=== PATIENT | male | born 1975 | race Two or more races ===

== ENCOUNTER 2024-05-27 18:14 | Emergency (ER) | payer MEDICARE, OTHER ==
[~2024-05-27] VITALS: Ht 193 cm; Wt 127.2 kg
[2024-05-27 18:51] LABS: Basophils # (auto) 0 10 ^3/uL (0-0.2); Basophils % (auto) 0.2 % (0.0-2.0); Eosinophils # (auto) 0.1 10 ^3/uL (0-0.8); Eosinophils % (auto) 1.5 % (0.0-7.0); Hematocrit 40.8 % (41.0-53.0); Hemoglobin 13.4 g/dL (13.5-17.5); Lymphocytes # (auto) 2.7 10 ^3/uL (0.4-5.4); Lymphocytes % (auto) 36.1 % (10.0-50.0); Mean Corpuscular Hemoglobin 28.9 pg (28.0-32.0); Mean Corpuscular Hgb Conc. 32.9 g/dL (32.0-36.0); Mean Corpuscular Volume 87.7 fL (80.0-100.0); Monocytes # (auto) 0.8 10 ^3/uL (0-1.3); Monocytes % (auto) 10.6 % (0.0-12.0); Neutrophils # (auto) 3.9 10 ^3/uL (1.6-8.6); Neutrophils % (auto) 51.6 % (37.0-80.0); Platelet Count (auto) 248 10^3/uL (140-450); Red Blood Cells 4.65 10^6/uL (4.5-5.90); Red Cell Distribution Width 14.6 % (11.8-14.3); White Blood Cell 7.5 10^3/uL (4.4-10.8)
[2024-05-27 18:52] VITALS: TEMP 98.2
[2024-05-27] MEDS: NITROGLYCERIN 0.4 MG SL TAB SL ONE (18:52)
[2024-05-27 19:07] LABS: Alanine Aminotransferase 17 U/L (7-40); Albumin 4.2 g/dL (3.2-4.8); Alkaline Phosphatase 115 U/L (46-116); Anion Gap 0 (5-15); Aspartate Aminotransferase 18 U/L (13-40); Bilirubin, Total 0.2 mg/dL (0.2-1.0); Blood Urea Nitrogen 10 mg/dL (9-23); Calcium 9.9 mg/dL (8.7-10.4); Carbon Dioxide 33 mmol/L (20-30); Chloride 108 mmol/L (98-107); Glucose 79 mg/dL (74-106); Magnesium 1.8 mg/dL (1.6-2.6); Potassium 3.9 mmol/L (3.5-5.1); Sodium 141 mmol/L (136-145); Total Protein 6.3 g/dL (5.7-8.2)
[2024-05-27 19:10] LABS: INR 0.99 (0.9-1.15); Prothrombin Time 10.5 sec (9.3-11.8)
[2024-05-27 19:16] VITALS: BP 137/82; PULSE 66; RESP 18; O2SAT 99
[2024-05-27 20:30] LABS: Urine Bacteria None Seen /hpf (None Seen)
[2024-05-27 20:47] LABS: Urine Blood Negative /uL (Negative); Urine Clarity Clear (Clear); Urine Color Light-Yellow (Yellow); Urine Mucus FEW (None Seen); Urine Protein, UAD Negative (Negative); Urine Specific Gravity 1.024 (1.001-1.035); Urine Urobilinogen Normal (Negative); Urine WBC 1 /hpf (0 - 3); Urine pH 6.5 (5.0-9.0)
== END 2024-05-27 22:12 | disposition left against medical advice (07) ==
LOC: EDBD 18:14 → ER 18:14
DX: R07.89 Other chest pain (principal)
CPT/HCPCS: 36415; 71045; 80053; 81001; 83735; 83880; 84484; 85025; 85610; 85730; 93005

== ENCOUNTER 2024-05-27 22:48 | Emergency (ER) | payer MEDICARE | END 2024-05-27 23:08 | disposition home or self-care (01) | LOC: ER 22:48 | DX: R45.851 Suicidal ideations (principal); Z53.21 Procedure and treatment not carried out due to patient leaving prior to being seen by health care provider ==

== ENCOUNTER 2024-10-08 11:58 | Inpatient (IN) | payer MEDICARE, MEDICAID ==
[~2024-10-08] VITALS: Ht 193 cm; Wt 107.9 kg
--- NOTE | 2024-10-08 13:44 | DVH ---
CHEST RADIOGRAPH Indication: sob Technique: Single frontal view of the chest was obtained Comparison: XY CHEST PORTABLE on DOS: 05/27/24 FINDINGS: Lines and Tubes: None Lungs: No focal consolidation. Pleura: No effusion. No pneumothorax. Cardiomediastinal contours: Unremarkable Bones: No acute osseous abnormality. IMPRESSION: No acute cardiopulmonary disease.
--- NOTE | 2024-10-08 13:46 | ED.PDOC ---
History of Present Illness HPI Comments 48 y/o M, Hx of HTN, and seizures is BIBA for c/o chest pain, palpitations, shortness of breath, nonproductive cough, and nausea, today. Per EMS report, patient endorses sudden onset of symptoms that was provoked, this afternoon, after walking to his local [employer] from his place of residence. Patient was commented to have been found in sinus tachycardia by EMS staff on scene and was given 324 ASA en route, with all other reported vitals being stable and within renee limits. Patient endorses on no additional relevant or pertinent Hx, with exception of running out of seizure medications after moving to the area, recently, and has been had 2x tonic clonic seizures since. He denies having any back pain, vomiting, fever, chills, or other associated symptoms or modifiers at this time. Chief Complaint: Chest Pain Time Seen by MD: 12:20 Primary Care Provider: NONE Reviewed Notes: Nurses Notes, International Controller Notes, Medications, Allergies Allergies: Coded Allergies: NO KNOWN ALLERGIES (Unverified , 05/27/24) Information Source: Patient, Emergency Med Personnel Mode of Arrival: EMS Severity: Moderate Timing: Hours Duration: Since onset Prehospital treatment: 12 Lead EKG, ASA (324mg), Rn Care Transition Past Medical History PAST MEDICAL HISTORY: Depression, HTN, Seizures Surgical History: Denies all surgeries Family History Family History: Reviewed,noncontributory to illness, No family hx of Cancer, No family hx of DM, No family hx of Heart víctor, No family hx of HTN, No family hx ofKidney víctor, No family hx of Liver víctor, No family hx of Lung víctor, No family hx of Stroke Social History Smoker: Non-Smoker Alcohol: Denies ETOH Use Drugs: Denies Drug Use Lives In: Home Respiratory: reports: cough, shortness of breath Cardiovascular: reports: chest pain, palpitations Gastrointestinal: reports: nausea All Other Systems: Reviewed and Negative (negative unless otherwise stated above or in HPI) Physical Exam General Appearance: Moderate Distress HEENT: Normal ENT Inspection, Pharynx Normal, TMs Normal Neck: Full Range of Motion, Non-Tender, Normal, Normal Inspection Respiratory: Chest Non-Tender, Lungs Clear, No Accessory Muscle Use, No Respiratory Distress, Normal Breath Sounds Cardiovascular: No Edema, No JVD, No Murmur, No Gallop, Normal Peripheral Pulses, Regular Rate/Rhythm Breast Exam: Deferred Gastrointestinal: No Organomegaly, Non Tender, No Pulsatile Mass, Normal Bowel Sounds, Soft Genitalia: Deferred Pelvic: Deferred Rectal: Deferred Extremities: No calf tenderness, Normal capillary refill, Normal inspection, Normal range of motion, Non-tender, Pedal edema Musculoskeletal : Apperance: Normal Neurologic: Alert, product handler II-XII nml as Tested, No Motor Deficits, Normal Affect, Normal Mood, No Sensory Deficits Cerebellar Function: NOT DONE Reflexes: NOT DONE Skin: Dry, Normal Color, Warm Peripheral Pulses: 3+ Radial (R), 3+ Radial (L) Lymphatic: No Adenopathy Was a procedure done? Was a procedure done?: No EKG EKG : Pulse Rate (adult): 94 [place]: Normal Cardiac Rhythm: NSR Block: None Hypertrophy: None ST: Normal Differential Dx Considerations may include: MN, ACS, PE, PNA, URI, covid19, bronchitis, pleural effusions, costochondritis, pericarditis, angina, gastritis, viral syndrome X-Ray, Labs, Meds, VS Vital Signs Date Time Temp Pulse Resp B/P (MAP) Pulse Ox O2 Delivery O2 Flow Rate FiO2 10/08/24 13:46 94 10/08/24 13:33 86 10/08/24 12:06 98.3 102 16 120/77 (91) 97 10/08/24 12:01 94 Lab Test 10/08/24 13:41 Range/Units White Blood Count 5.4 4.4-10.8 10^3/uL Red Blood Count 5.22 4.5-5.90 10^6/uL Hemoglobin 15.1 13.5-17.5 g/dL Hematocrit 46.1 41.0-53.0 % Mean Corpuscular Volume 88.4 80.0-100.0 fL Mean Corpuscular Hemoglobin 28.9 28.0-32.0 pg Mean Corpuscular Hemoglobin Concent 32.7 32.0-36.0 g/dL Red Cell Distribution Width 14.9 H 11.8-14.3 % Platelet Count 254 140-450 10^3/uL Mean Platelet Volume 7.9 6.9-10.8 fL Neutrophils (%) (Auto) 37.0-80.0 % Lymphocytes (%) (Auto) 10.0-50.0 % Monocytes (%) (Auto) 0.0-12.0 % Basophils (%) (Auto) 0.0-2.0 % Neutrophils # (Auto) 1.6-8.6 10 ^3/uL Lymphocytes # (Auto) 0.4-5.4 10 ^3/uL Monocytes # (Auto) 0-1.3 10 ^3/uL Differential Total Cells Counted 100.0 100 Neutrophils % (Manual) 23 L 37.0-80.0 Band Neutrophils % (Manual) 0 Lymphocytes % (Manual) 72 H 10.0-50.0 Monocytes % (Manual) 5 0-12 Eosinophils % (Manual) 0 0-7 Basophils % (Manual) 0 0.0-2.0 Metamyelocytes % (manual) 0 Myelocytes % (Manual) 0 Promyelocytes % (Manual) 0 Blast Cells % (Manual) 0 Reactive Lymphocytes 0 Platelet Estimate Adequate Sodium Level 143 136-145 mmol/L Potassium Level 4.3 3.5-5.1 mmol/L Chloride Level 107 98-107 mmol/L Carbon Dioxide Level 28 20-31 mmol/L Anion Gap 8 5-15 Blood Urea Nitrogen 12 9-23 mg/dL Creatinine 0.93 0.700-1.30 mg/dL Glomerular Filtration Rate Calc 101 >90 mL/min BUN/Creatinine Ratio 12.9 10.0-20.0 Serum Glucose 90 74-106 mg/dL Calcium Level 10.4 8.7-10.4 mg/dL Troponin I High Sensitivity 8 </=54 ng/L Patient alert. Complaining of chest pain. Chest pain started upon walking. Vitals stable. Answering all questions. EKG reviewed does not show any acute changes. Positive stress test. Cardiology consultation. Echocardiogram. Was given aspirin. Was given nitro. History of seizures. Ran out of his medication. Was given Keppra. Reviewed his previous visit. Explained to the patient. Continue cardiac monitoring. Time of 1ST Reevaluation: 12:50 Reevaluation 1ST: Unchanged Patient Education/Counseling: Diagnosis, Treatment Family Education/Counseling: No Family Present Additional Information I reviewed the following notes from patient's past medical encounters: ED physician documentation on 05/28/24 and 05/27/24 The following tests were ordered, and results were reviewed by me: BMP, CBC, TROPONIN, CXR, EKG Additional Information was gathered from interviewing the following independent historians: EMT I reviewed and agreed with the following test results read by other providers: CXR I discussed treatment and results with medical personnel Departure 1 Departure Time of Disposition: 14:54 Impression: Primary Impression: Chest pain of unknown etiology Additional Impression: Seizure disorder Disposition: ADMITTED INPATIENT Admit to: Med Surg Condition: Guarded Critical Care Note Critical Care Time?: Yes (45 min-critical care time only) Stability Stability form required: No Heart Score Heart Score: Heart Score Response (Comments) Value History Moderate Suspicious 1 EKG Normal 0 Age 45-64 1 Risk Factors 1 or 2 risk factors 1 Troponin Normal limit 0 Total 3 I personally scribed for STANISLAW PARRA MD ([email or web address]) on 10/08/24 at 13:46. Electronically submitted by Will Villasenor ([email or web address]). STANISLAW PARRA MD Oct 08, 2024 13:46
[2024-10-08 13:59] LABS: Hematocrit 46.1 % (41.0-53.0); Hemoglobin 15.1 g/dL (13.5-17.5); Mean Corpuscular Hemoglobin 28.9 pg (28.0-32.0); Mean Corpuscular Hgb Conc. 32.7 g/dL (32.0-36.0); Mean Corpuscular Volume 88.4 fL (80.0-100.0); Platelet Count (auto) 254 10^3/uL (140-450); Red Blood Cells 5.22 10^6/uL (4.5-5.90); Red Cell Distribution Width 14.9 % (11.8-14.3); White Blood Cell 5.4 10^3/uL (4.4-10.8)
[2024-10-08 14:01] LABS: Band Neutrophils % (manual) 0; Basophils % (manual) 0 (0.0-2.0); Blast Cells 0; Eosinophils % (manual) 0 (0-7); Metamyelocytes % 0; Myelocytes % 0; Promyelocytes % 0; Reactive Lymphocytes 0
[2024-10-08 14:12] LABS: Chloride 107 mmol/L (98-107); Potassium 4.3 mmol/L (3.5-5.1); Sodium 143 mmol/L (136-145)
[2024-10-08 14:13] LABS: Anion Gap 8 (5-15); Carbon Dioxide 28 mmol/L (20-31)
[2024-10-08 14:18] LABS: Calcium 10.4 mg/dL (8.7-10.4); Glucose 90 mg/dL (74-106)
[2024-10-08 14:19] LABS: BUN/Creatinine Ratio 12.9 (10.0-20.0); Blood Urea Nitrogen 12 mg/dL (9-23)
[2024-10-08 14:31] LABS: Lymphocytes % (manual) 72 (10.0-50.0); Monocytes % (manual) 5 (0-12); Platelet Estimate Adequate
[2024-10-08] MEDS: NITROGLYCERIN 0.4 MG SL TAB SL ONE (16:09)
[2024-10-08] MEDS: ASPirin 325 MG TAB PO ONE (16:10)
[2024-10-08] MEDS: SODIUM CHLORIDE 0.9% 1,000 ML IV ONE (16:13)
[2024-10-08] MEDS: levETIRAcetam 1000 mg/100ml 100 ML IV ONE (16:37)
[2024-10-08 19:30] VITALS: PULSE 89; RESP 18; O2SAT 95
[2024-10-08 21:00] VITALS: BP 106/50; PULSE 72; RESP 20; TEMP 98.6; O2SAT 98
[2024-10-08] MEDS ORDERED: NITROGLYCERIN 0.4 MG SL TAB SL PRN (22:00)
[2024-10-08] MEDS ORDERED: MORPHINE SULFATE INJ 2 MG/ml SYRG IV PRN (22:00)
--- NOTE | 2024-10-08 22:02 | DVHHPRES ---
History of Present Illness Resident Creating Document: STEFANIE MURRIETA RESIDENT History of Present Illness This is a 48-year-old male with past medical history of hypertension, bipolar disorder, seizure presented to the ED with a chief complaint of chest pain and palpitation prior to this admission. The patient states that chest pain started suddenly which was sharp, stabbing pain continuous, localized, without any aggravating or relieving factor and associated with palpitation, shortness of breath and nausea. The patient has seizure disorder and last seizure episode was 1 month ago because he was not able to refill the medication because of moving to the new area. He denies headache, blurry vision, diaphoresis, dizziness, abdominal pain, vomiting, dysuria or any change in bowel and bladder habit. Past Medical History Hypertension, bipolar disorder, seizure Past Surgical History Hernia surgery Family History: None Past Social History Lives alone Smoke marijuana and occasional drinker Review of Systems Constitutional: No: Fever, Chills, Sweats, Weakness, Malaise, Other Eyes: No: Pain, Vision change, Conjunctivae inflammation, Eyelid inflammation, Other, Redness ENT: No: Ear pain, Ear discharge, Nose pain, Nose discharge, Nose congestion, Mouth pain, Mouth swelling, Throat pain, Throat swelling, Other Respiratory: No: Cough, Dry, Shortness of breath, SOB with excertion, Wheezing, Hemoptysis, Pleuritic Pain, Sputum, Wheezing, Other Cardiovascular: Chest Pain, Palpitations; No: Orthopnea, Paroxysmal Noc. Dyspnea, Edema, Lt Headedness, Other Gastrointestinal: Nausea; No: Vomiting, Abdominal Pain, Diarrhea, Constipation, Melena, Hematochezia, Other Genitourinary: No Dysuria, No Frequency, No Incontinence, No Hematuria, No Retention, No Other Musculoskeletal: No: other, neck pain, shoulder pain, arm pain, back pain, hand pain, leg pain, foot pain Skin: No: Rash, Lesions, Jaundice, Bruising, Other Neurological: No: Weakness, Numbness, Incoordination, Change in speech, Confusion, Seizures, Other Allergies: Coded Allergies: NO KNOWN ALLERGIES (Unverified , 05/27/24) Exam Vital Signs Vital Signs Date Time Temp Pulse Resp B/P (MAP) Pulse Ox O2 Delivery O2 Flow Rate FiO2 10/08/24 16:13 91 17 99 Room Air 10/08/24 16:13 98.4 127/58 (81) 98.4 Exam Physical examination: General Appearance: Alert, Oriented X3, Cooperative, No acute distress HEENT: Atraumatic, PERRLA, EOMI, Mucous membrane moist/pink Respiratory: Clear to auscultation, Normal air movement Cardiovascular: Regular rate, Normal S1, Normal S2, No murmurs, no chest wall tenderness Abdominal: Normal bowel sounds, Soft, No tenderness, No hepatospenomegaly, No masses Extremities: No clubbing, No cyanosis, No edema, Normal pulses, No tenderness/swelling Skin: No rashes, No breakdown, No significant lesion Neuro: Normal gait, Normal speech, Strength at 5/5 X4 ext, Normal tone, Sensation intact, grossly intact cranial nerves. Psych/Mental Status: Mental status NL, Mood NL Labs/Xrays Labs Test 10/08/24 13:41 Range/Units White Blood Count 5.4 4.4-10.8 10^3/uL Red Blood Count 5.22 4.5-5.90 10^6/uL Hemoglobin 15.1 13.5-17.5 g/dL Hematocrit 46.1 41.0-53.0 % Mean Corpuscular Volume 88.4 80.0-100.0 fL Mean Corpuscular Hemoglobin 28.9 28.0-32.0 pg Mean Corpuscular Hemoglobin Concent 32.7 32.0-36.0 g/dL Red Cell Distribution Width 14.9 H 11.8-14.3 % Platelet Count 254 140-450 10^3/uL Mean Platelet Volume 7.9 6.9-10.8 fL Neutrophils (%) (Auto) 37.0-80.0 % Lymphocytes (%) (Auto) 10.0-50.0 % Monocytes (%) (Auto) 0.0-12.0 % Basophils (%) (Auto) 0.0-2.0 % Neutrophils # (Auto) 1.6-8.6 10 ^3/uL Lymphocytes # (Auto) 0.4-5.4 10 ^3/uL Monocytes # (Auto) 0-1.3 10 ^3/uL Differential Total Cells Counted 100.0 100 Neutrophils % (Manual) 23 L 37.0-80.0 Band Neutrophils % (Manual) 0 Lymphocytes % (Manual) 72 H 10.0-50.0 Monocytes % (Manual) 5 0-12 Eosinophils % (Manual) 0 0-7 Basophils % (Manual) 0 0.0-2.0 Metamyelocytes % (manual) 0 Myelocytes % (Manual) 0 Promyelocytes % (Manual) 0 Blast Cells % (Manual) 0 Reactive Lymphocytes 0 Platelet Estimate Adequate Sodium Level 143 136-145 mmol/L Potassium Level 4.3 3.5-5.1 mmol/L Chloride Level 107 98-107 mmol/L Carbon Dioxide Level 28 20-31 mmol/L Anion Gap 8 5-15 Blood Urea Nitrogen 12 9-23 mg/dL Creatinine 0.93 0.700-1.30 mg/dL Glomerular Filtration Rate Calc 101 >90 mL/min BUN/Creatinine Ratio 12.9 10.0-20.0 Serum Glucose 90 74-106 mg/dL Calcium Level 10.4 8.7-10.4 mg/dL Troponin I High Sensitivity 8 </=54 ng/L Assessment/Plan Assessment/Plan Assessment and plan: # Chest pain rule out ACS - EKG and troponin are unremarkable - Ordered UDS - Patient was given aspirin 325 mg once - Started aspirin 81 mg p.o. daily and atorvastatin 40 mg at HS - Ordered echo # Reactive Lymphocytosis, rule out viral infection - Ordered COVID ,flu, comprehensive hepatitis panel. # History of seizure disorder - Continue home meds # History of bipolar disorder - Continue home meds # PUD prophylaxis - Pepcid 20 mg PO daily. # DVT prophylaxis - Not recommended as patient is mobile. Goal of care discussed with the patient for more than 17 minutes full code Plan discussed with Dr. Blount Plan discussed with: Patient, Other Date of Service: Oct 08, 2024 Billing Provider: STUART BLOUNT MD Common Visit Codes: [id number] INP/OBS CARE (HIGH) STEFANIE MURRIETA RESIDENT Oct 08, 2024 22:02 STUART BLOUNT MD Oct 10, 2024 10:46
[2024-10-08] MEDS: ATORVASTATIN 20 MG TAB PO SCH (23:00)
[2024-10-08] MEDS ORDERED: SERT100T PO (23:06)
[2024-10-08] MEDS ORDERED: DIVA125T30 PO (23:06)
[2024-10-09] VITALS (9 sets, daily range): BP systolic 97–145; BP diastolic 61–72; PULSE 67–89; RESP 14–20; TEMP 97.5–98.1; O2SAT 94–98
[2024-10-09 06:09] LABS: COVID19 ANTIGEN SOFIA FIA NEGATIVE (NEGATIVE); Rapid Influenza A Negative (Negative)
[2024-10-09 06:15] LABS: Rapid Influenza B Positive (Negative)
[2024-10-09 06:40] LABS: Urine Bacteria None Seen /hpf (None Seen)
[2024-10-09 07:02] LABS: Urine Blood Negative /uL (Negative); Urine Clarity Clear (Clear); Urine Color Light-Yellow (Yellow); Urine Mucus FEW (None Seen); Urine Protein, UAD Negative (Negative); Urine Specific Gravity 1.031 (1.001-1.035); Urine Squamous Epithelial Cell FEW /hpf (<5); Urine Urobilinogen Normal (Negative); Urine WBC <1 /hpf (0 - 3)
[2024-10-09 07:16] LABS: Amphetamine Screen, Urine Neg (NEGATIVE); Benzodiazephine Screen, Urine Neg (NEGATIVE)
[2024-10-09 07:17] LABS: Barbiturate Scree,Urine Neg (NEGATIVE); Cannabinoid Screen, Urine Pos (NEGATIVE); Cocaine Screen, Urine Neg (NEGATIVE); Opiate Scree,Urine Neg (NEGATIVE); Phencyclidine Screen, Urine Neg (NEGATIVE)
[2024-10-09] MEDS: OSELTAMIVIR 75 MG CAP PO SCH (10:35)
[2024-10-09] MEDS: OLANZapine 5 MG TAB PO SCH (10:35)
[2024-10-09] MEDS: ASPirin-EC 81 mg tab PO SCH (10:35)
[2024-10-09] MEDS: FAMOTIDINE 20 MG TAB PO SCH (10:35)
[2024-10-09] MEDS: SERTRALINE HCL 50 MG TAB PO SCH (10:38)
[2024-10-09 12:05] LABS: Hepatitis B Surface Antigen Negative (Negative)
--- NOTE | 2024-10-09 13:18 | ECG ---
[facility] Test Date: 2024-10-08 Test Time: 12:01:27 Pat Name: SURY CAPELLAN Department: er Room: 0287T Gender: M Postal Worker: betzy : 1975 Requested By: EMERGENCY EMERGENCY Order Number: [id number] Reading MD: Marely Hatfield Measurements Intervals [place] Rate: 94 P: 55 MD: 146 QRS: 64 QRSD: 92 T: 37 QT: 339 QTc: 424 Interpretive Statements Sinus rhythm ST elev, probable normal early repol pattern Artifact in lead(s) I,II,III,aVR,aVL and baseline wander in lead(s) V6 Electronically Signed On 10-09-2024 22:17:13 PST by Marely Hatfield Please click the below link to view image of tracing.
[2024-10-09 13:24] LABS: Hepatitis C Antibody Negative (Negative)
--- NOTE | 2024-10-09 18:45 | DVHPNRES ---
Progress Note Date Seen: Oct 09, 2024 Resident Creating Document: BRENT HERNÁNDEZ RESIDENT Medical Necessity Reason Pt with a Central, PICC or Fol: No Subjective Review of Systems This is a 48-year-old male with past medical history of hypertension, bipolar disorder, seizure presented to the ED with a chief complaint of chest pain and palpitation prior to this admission. The patient states that chest pain started suddenly which was sharp, stabbing pain continuous, localized, without any aggravating or relieving factor and associated with palpitation, shortness of breath and nausea. The patient has seizure disorder and last seizure episode was 1 month ago because he was not able to refill the medication because of moving to the new area. Patient was tested for influenza, being positive for influenza type B after which we started him on oseltamivir 75 mg b.i.d. p.o. t roponin levels were negative , EKG was unremarkable, echocardiogram still pending. To surgery were unremarkable but the patient will do stay on isolation to antigen monitoring his vital signs had clinical status. Patient has moderate to high statin recommended because 10 year risk more than 7.5%. 10.3% risk of cardiovascular event (2012 ASCVD) Review of systems were unremarkable except for as mentioned in the HPI. Patient reports: Feels better Changes from previous H/P or p: Changes Review of Systems: HEENT:Normal, CVS:Normal, RESPIRATORY:Normal, GI:Normal, :Normal, MSK:Normal, NEURO:Normal Objective vital signs Vital Sign Date Time Temp Pulse Resp B/P (MAP) Pulse Ox O2 Delivery O2 Flow Rate FiO2 10/09/24 17:00 97.6 68 16 125/72 (89) 98 97.6 10/09/24 07:30 Room Air* 0 21 Total Intake and Output 10/08/24 10/08/24 10/09/24 15:00 23:00 07:00 Intake Total 100 ml Balance 100 ml medications Current Medications Medications Dose Ordered Sig/Karel Route Start Time Stop Time Status Last Admin Dose Admin Nitroglycerin 0.4 mg Q5MINP PRN SL 10/08/24 22:00 Morphine Sulfate 2 mg Q30M PRN IV 10/08/24 22:00 Aspirin 81 mg DAILY PO 10/09/24 10:00 10/09/24 10:35 81 MG Atorvastatin Calcium 40 mg HS PO 10/08/24 22:00 10/08/24 23:00 40 MG Divalproex Sodium 500 mg BID PO 10/09/24 10:00 10/09/24 10:36 500 MG Sertraline HCl 100 mg DAILY PO 10/09/24 10:00 10/09/24 10:38 100 MG Olanzapine 20 mg DAILY PO 10/09/24 10:00 10/09/24 10:35 20 MG Famotidine 20 mg DAILY PO 10/09/24 10:00 10/09/24 10:35 20 MG Oseltamivir Phosphate 75 mg Q12HR PO 10/09/24 10:00 10/14/24 09:59 10/09/24 10:35 75 MG Examination General Appearance: Alert, Oriented X3, Cooperative, No acute distress HEENT: Atraumatic, PERRLA, EOMI, Mucous membrane moist/pink Respiratory: Clear to auscultation, Normal air movement Cardiovascular: Regular rate, Normal S1, Normal S2, No murmurs, no chest wall tenderness Abdominal: Normal bowel sounds, Soft, No tenderness, No hepatospenomegaly, No masses Extremities: No clubbing, No cyanosis, No edema, Normal pulses, No tenderness/swelling Skin: No rashes, No breakdown, No significant lesion Neuro: Normal gait, Normal speech, Strength at 5/5 X4 ext, Normal tone, Sensation intact, Cranial nerves 3-12 NL, Reflexes 2+ Psych/Mental Status: Mental status NL, Mood NL Examination: GENERAL:Normal, HEENT:Normal laboratory and microbiology Laboratory Tests 10/08/24 13:41 Test 10/08/24 13:41 Range/Units Serum Glucose 90 74-106 mg/dL Problem List/Assessment/Plan Problem List/Assessment/Plan # Non cardiac chest pain ,rule out ACS - 10.3% risk of cardiovascular event (2012 ASCVD) - EKG and troponin are unremarkable - Started aspirin 81 mg p.o. daily and atorvastatin 40 mg at HS - Echo, pending - Consider cardiology follow up in the outpatient for an stress test # Viral pneumonia due to influenza type B infection # Reactive Lymphocytosis - Oseltamivir 75 mg PO BID # History of seizure disorder - Continue home meds # History of bipolar disorder - Continue home meds # PUD prophylaxis - Pepcid 20 mg PO daily. # DVT prophylaxis - Not recommended as patient is mobile. #Nicotine dependency - smoking cessation counseling #Drug abuse, marijuana use - drug use cessation counseling # Type 2 obesity ,BMI 38.1 - Lifestyle modification and dietary habits counseling Case discussed with Dr. Coker Goals of care with the patient for 36 minutes Code status: Full code Plan discussed with: Patient My Orders My Orders Orders - BRENT HERNÁNDEZ Procedure Category Date Status Time Oseltamivir 75mg PHA 10/09/24 In Process Capsule (Tamiflu 75mg 10:00 Schedule For Dc ALEXA 10/09/24 In Process Clinic F/U 12:57 Date of Service: Oct 09, 2024 Billing Provider: LINA YEUNG MD Common Visit Codes: [id number] INP/OBS CARE(MOD) BRENT HERNÁNDEZ RESIDENT Oct 09, 2024 18:45 LINA YEUNG MD Oct 10, 2024 14:13
[2024-10-09 22:24] LABS: Triglycerides 86 mg/dL (< 150)
[2024-10-09 22:25] LABS: LDL Cholesterol 30 mg/dL (< 100)
[2024-10-09 22:26] LABS: Cholesterol 108 mg/dL (< 200); HDL Cholesterol 54 mg/dL (40-59)
[2024-10-10 05:19] VITALS: BP 130/76; PULSE 68; RESP 17; TEMP 97.6; O2SAT 98
[2024-10-10 08:00] VITALS: PULSE 65; PULSE 80; RESP 18
[2024-10-10 08:40] VITALS: BP 153/71; PULSE 73; RESP 20; TEMP 97.9; O2SAT 97
[2024-10-10 13:00] VITALS: BP 128/79; PULSE 68; RESP 20; TEMP 98.6; O2SAT 99
[2024-10-10] MEDS ORDERED: OSEL6SUS5 PO (13:45)
--- NOTE | 2024-10-10 14:46 | DVHDSRES ---
Discharge Summary Date of Admission Resident Creating Document: BRENT HERNÁNDEZ RESIDENT Oct 08, 2024 at 21:58 Date of Discharge: Oct 09, 2024 Admitting Diagnosis Chest pain rule out ACS Labs/Diagnostic Data: Laboratory Results Test 10/10/24 05:40 10/09/24 21:18 10/09/24 05:03 10/09/24 04:20 Vitamin B12 Level 517 pg/mL (211-911) Vitamin D 25-Hydroxy 12.5 ng/mL (30.0-100) Thyroid Stimulating Hormone (TSH) 0.73 uIU/mL (0.55-4.78) Triglycerides Level 86 mg/dL (< 150) Cholesterol Level 108 mg/dL (< 200) LDL Cholesterol 30 mg/dL (< 100) HDL Cholesterol 54 mg/dL (40-59) Urine Color Light-yellow (Yellow) Urine Clarity Clear (Clear) Urine pH 6.0 (5.0-9.0) Urine Specific [place] 1.031 (1.001-1.035) Urine Protein Negative (Negative) Urine Ketones Negative (Negative) Urine Blood Negative /uL (Negative) Urine Nitrite Negative (Negative) Urine Bilirubin Negative (Negative) Urine Urobilinogen Normal mg/dL (Negative) Urine Leukocyte Esterase Negative /uL (Negative) Urine RBC 1 /hpf (0 - 3) Urine WBC <1 /hpf (0 - 3) Urine Squamous Epithelial Cells Few /hpf (<5) Urine Bacteria None seen /hpf (None Seen) Urine Mucus Few (None Seen) Urine Glucose Normal mg/dL (Normal) Urine Opiates Screen Neg (NEGATIVE) Urine Fentanyl Screen Neg (NEGATIVE) Urine Barbiturates Screen Neg (NEGATIVE) Urine Phencyclidine Screen Neg (NEGATIVE) Urine Amphetamines Screen Neg (NEGATIVE) Urine Benzodiazepines Screen Neg (NEGATIVE) Urine Cocaine Screen Neg (NEGATIVE) Urine Cannabinoids Screen Pos (NEGATIVE) Influenza Type A Antigen Negative (Negative) Influenza Type B Antigen Positive (Negative) SARS-CoV-2 Antigen (Rapid) Negative (NEGATIVE) Hepatitis B Surface Antigen Negative (Negative) Hepatitis C Antibody Negative (Negative) Test 10/08/24 13:41 White Blood Count 5.4 10^3/uL (4.4-10.8) Red Blood Count 5.22 10^6/uL (4.5-5.90) Hemoglobin 15.1 g/dL (13.5-17.5) Hematocrit 46.1 % (41.0-53.0) Mean Corpuscular Volume 88.4 fL (80.0-100.0) Mean Corpuscular Hemoglobin 28.9 pg (28.0-32.0) Mean Corpuscular Hemoglobin Concent 32.7 g/dL (32.0-36.0) Red Cell Distribution Width 14.9 % (11.8-14.3) Platelet Count 254 10^3/uL (140-450) Mean Platelet Volume 7.9 fL (6.9-10.8) Neutrophils (%) (Auto) % (37.0-80.0) Lymphocytes (%) (Auto) % (10.0-50.0) Monocytes (%) (Auto) % (0.0-12.0) Basophils (%) (Auto) % (0.0-2.0) Neutrophils # (Auto) 10 ^3/uL (1.6-8.6) Lymphocytes # (Auto) 10 ^3/uL (0.4-5.4) Monocytes # (Auto) 10 ^3/uL (0-1.3) Differential Total Cells Counted 100.0 (100) Neutrophils % (Manual) 23 (37.0-80.0) Band Neutrophils % (Manual) 0 Lymphocytes % (Manual) 72 (10.0-50.0) Monocytes % (Manual) 5 (0-12) Eosinophils % (Manual) 0 (0-7) Basophils % (Manual) 0 (0.0-2.0) Metamyelocytes % (manual) 0 Myelocytes % (Manual) 0 Promyelocytes % (Manual) 0 Blast Cells % (Manual) 0 Reactive Lymphocytes 0 Platelet Estimate Adequate Sodium Level 143 mmol/L (136-145) Potassium Level 4.3 mmol/L (3.5-5.1) Chloride Level 107 mmol/L (98-107) Carbon Dioxide Level 28 mmol/L (20-31) Anion Gap 8 (5-15) Blood Urea Nitrogen 12 mg/dL (9-23) Creatinine 0.93 mg/dL (0.700-1.30) Glomerular Filtration Rate Calc 101 mL/min (>90) BUN/Creatinine Ratio 12.9 (10.0-20.0) Serum Glucose 90 mg/dL (74-106) Hemoglobin A1c 5.7 % A1C (<5.7) Calcium Level 10.4 mg/dL (8.7-10.4) Troponin I High Sensitivity 8 ng/L (</=54) Other Laboratory Tests 10/08/24 13:41 Brief Hx & Hospital Course: HPI: This is a 48-year-old male with past medical history of hypertension, bipolar disorder, seizure presented to the ED with a chief complaint of chest pain and palpitation prior to this admission. The patient states that chest pain started suddenly which was sharp, stabbing pain continuous, localized, without any aggravating or relieving factor and associated with palpitation, shortness of breath and nausea. The patient has seizure disorder and last seizure episode was 1 month ago because he was not able to refill the medication because of moving to the new area. Hospital course: Patient was tested for influenza, being positive for influenza type B after which we started him on oseltamivir 75 mg b.i.d. p.o. troponin levels were negative , EKG was unremarkable. Patient positive for influenza infection currently asymptomatic, patient currently on oseltamivir 75 mg BID , lipid panel came back normal , the patient report no new symptoms and vitals signs were stable for wich the patient was safely discharged home with the recommendations to follow up with his PCP within 1 to 2 weeks and continue with the medications as prescribed. Disposition: Patient stable for discharge to home. Case discussed with Dr. Coker Goals of care discussed with the patient for 27 minutes. Operations or Procedures [place] [id number] Ph: [phone] DIAGNOSTIC IMAGING Diagnostic Imaging Report : [id number] Signed PATIENT: SURY CAPELLAN ACCT: [id number] UNIT: [id number] : 1975 LOC: ER ROOM / BED: / AGE / SEX: 48 / M ADM STATUS: REG ER SERVICE 1215 ORDERING PHYSICIAN: STANISLAW PARRA MD PROCEDURE(s): CXRP - CHEST PORTABLE REASON: sob ORDER NUMBER(s): [id number], ACCESSION NUMBER(s): [id number] CHEST RADIOGRAPH Indication: sob Technique: Single frontal view of the chest was obtained Comparison: XY CHEST PORTABLE on DOS: 05/27/24 FINDINGS: Lines and Tubes: None Lungs: No focal consolidation. Pleura: No effusion. No pneumothorax. Cardiomediastinal contours: Unremarkable Bones: No acute osseous abnormality. IMPRESSION: No acute cardiopulmonary disease. 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 Patient was counseled about treatment plan, medications, possible side effects, patientverbalized understanding. All questions were answered to the best of my ability. This discharge took greater then 30 minutes in planning, reviewing documentation, counseling the patient, and discussing with other team members." ASSESSMENT ASSESSMENT Assessment atypical chest pain likely pleuritic due to viral influenza pneumonia Date of Service: Oct 10, 2024 Billing Provider: LINA YEUNG MD Common Visit Codes: 78242-UOW/OBS DISCH DAY >30min BRENT HERNÁNDEZ RESIDENT Oct 10, 2024 14:46 LINA YEUNG MD Oct 10, 2024 23:37
[2024-10-10] MEDS: ERGOCALCIFEROL 50,000 UNIT(1.25MG) CAP PO SCH (16:03)
== END 2024-10-10 15:45 | disposition home or self-care (01) | DRG 195 ==
LOC: ER 11:58 → EDBD 11:58 → TELE 21:58 → WEST WING 10-09 12:55 → TELE-WESTW 10-09 18:25
PROVIDERS: ADMIT Student in an Organized Health Care Education/Training Program; ATTEND Emergency Medicine
DX: J10.08 Influenza due to other identified influenza virus with other specified pneumonia (principal); J12.9 Viral pneumonia, unspecified; G40.909 Epilepsy, unspecified, not intractable, without status epilepticus; I10 Essential (primary) hypertension; E11.9 Type 2 diabetes mellitus without complications; Z20.822 Contact with and (suspected) exposure to COVID-19; F17.200 Nicotine dependence, unspecified, uncomplicated; D72.820 Lymphocytosis (symptomatic); F31.9 Bipolar disorder, unspecified; F12.10 Cannabis abuse, uncomplicated; E66.9 Obesity, unspecified; Z68.38 Body mass index [BMI] 38.0-38.9, adult; Z71.6 Tobacco abuse counseling
CPT/HCPCS: 36415; 71045; 80048; 80061; 80307; 81001; 82306; 82607; 83036; 84443; 84484; 85007; 85027; 86803; 87340; 87426; 87804; 93005; 96365; 99291; G0378